=== PATIENT | male | born 1955 | race Caucasian/White ===

== ENCOUNTER 2019-04-16 07:21 | Day surgery (SDC) | payer MEDICARE, MEDICAID ==
[2019-04-16] MEDS ORDERED: Propofol 200 MG/20 ML SDV ONE (07:34)
[2019-04-16] MEDS ORDERED: fentaNYL 100 MCG/2 ML SDV ONE (07:35)
[2019-04-16] MEDS ORDERED: Midazolam 1 MG/ML 2 ML SDV ONE (07:35)
[2019-04-16] MEDS ORDERED: Dextrose 5%-Lactated Ringers 1,000 ML IV SCH (08:00)
[2019-04-16] MEDS ORDERED: Glycopyrrolate 0.2 MG/ML 2 ML SDV IVPUSH ONE (08:00)
--- NOTE | 2019-04-25 15:19 | OR ---
DATE OF PROCEDURE: 04/16/2019 SURGEON: Matt Claudio MD PREOPERATIVE DIAGNOSES: Dysphagia and epigastric discomfort. POSTOPERATIVE DIAGNOSES: 1. 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 2. Large gastric and esophageal bezoar. OPERATIVE PROCEDURES: Upper gastrointestinal endoscopy with dilation of gastrojejunostomy (38782). ANESTHESIA: IV sedation. INDICATION FOR PROCEDURE: This is a 63-year-old male who is status post Riri-en-Y gastric bypass. In the past, he has had problems with stricturing at his gastrojejunostomy. He presents now with some increasing dysphagia. The plan will be to proceed with upper GI endoscope with biopsies and/or dilation as indicated. Potential risks including bleeding and perforation were discussed, and the patient wishes to proceed. DETAILS OF PROCEDURE: The patient was taken to the operating room and placed in a left lateral decubitus position. IV sedation was administered, after which the upper GI endoscope was passed orally through the length of the esophagus and into the area of the gastric pouch, and from there through the gastrojejunostomy roughly 20 cm into the Riri limb. Findings included some retained solid food within both distal esophagus and gastric pouch, and adjacent gastrojejunostomy consistent with some degree of bezoar formation. There was a mild stricture at the gastrojejunostomy allowing the 1 cm scope to be passed through that area. Otherwise, there were no ulcerations or other specific pathology. The gastrointestinal balloon catheter was then centered across the gastrojejunostomy and inflated to 54-Burkinan size. This was held in position for 1 minute, after which the balloon catheter was deflated and withdrawn. There was some dilation evident in terms of some bleeding visible, increasing the diameter of the gastrojejunostomy. The procedure was then concluded with removal of the scope. The patient was taken to the recovery room in satisfactory condition. The patient will be instructed, along with his staff, to begin an anti-bezoar diet. At this point, follow up with Surgery will be in 1 month to ascertain how he is doing at that point. Matt Claudio MD /[id number]
== END 2019-04-16 10:45 | disposition home or self-care (01) ==
LOC: JP.SDS 07:21
PROVIDERS: ATTEND Surgery
DX: K95.89 Other complications of other bariatric procedure (principal); T18.198A Other foreign object in esophagus causing other injury, initial encounter; T18.2XXA Foreign body in stomach, initial encounter; I10 Essential (primary) hypertension; E66.9 Obesity, unspecified; K21.9 Gastro-esophageal reflux disease without esophagitis; F41.9 Anxiety disorder, unspecified; F32.9 Major depressive disorder, single episode, unspecified; F03.90 Unspecified dementia, unspecified severity, without behavioral disturbance, psychotic disturbance, mood disturbance, and anxiety; G47.33 Obstructive sleep apnea (adult) (pediatric); Z68.42 Body mass index [BMI] 45.0-49.9, adult
CPT/HCPCS: 43245; J2250; J2704; J3010; J3490; J7042; J7121

== ENCOUNTER 2019-10-25 06:02 | Day surgery (SDC) | payer MEDICARE, MEDICAID ==
[2019-10-25] MEDS ORDERED: Dextrose 5%-Lactated Ringers 1,000 ML IV SCH (07:15)
[2019-10-25] MEDS ORDERED: Propofol 200 MG/20 ML SDV ONE ×2 (07:18→08:26)
[2019-10-25] MEDS ORDERED: Midazolam 1 MG/ML 2 ML SDV ONE (07:18)
[2019-10-25] MEDS ORDERED: fentaNYL 100 MCG/2 ML SDV ONE (07:18)
--- NOTE | 2019-10-26 11:12 | OR ---
DATE OF PROCEDURE: 10/25/2019 SURGEON: Matt Claudio MD PREOPERATIVE DIAGNOSIS: History of hematemesis and bloody stools. POSTOPERATIVE DIAGNOSES: 1. Mild pouch gastritis (no likely bleeding site identified). 2. Normal colonoscopic examination (no likely bleeding site identified, although perhaps excoriated hemorrhoids). OPERATIVE PROCEDURES: 1. Upper GI endoscopy with biopsies of gastric pouch for CLOtest. 2. Colonoscopy. ANESTHESIA: IV sedation. INDICATION FOR PROCEDURE: A 64-year-old male presenting with history of some hematemesis and bloody stools, status post previous gastric bypass many years ago. The plan is to proceed with upper and lower endoscopy. Potential risks including bleeding and perforation were discussed with the patient, and he wishes to proceed. DETAILS OF PROCEDURE: The patient was taken to the operating room and placed in a left lateral decubitus position. IV sedation was administered after which the upper GI endoscope was passed orally through the length of the esophagus into the gastric pouch and through the gastrojejunostomy roughly 20 cm into the Riri limb. The esophagus and EG junction were unremarkable. The gastric pouch was quite large and had some mild diffuse redness, but no erosions, ulcers or anything that would likely result in any significant bleeding. The gastrojejunostomy and visualized portion of the Riri limb were otherwise unremarkable. At this point, biopsies were obtained from the gastric pouch and sent for CLOtest for H. pylori. Minimal bleeding from the biopsy site was seen and the procedure was then concluded. Attention was then taken to the colonoscopy. Initial digital rectal exam was performed and was unremarkable. Colonoscope was passed into the rectum with retroflexion revealing uncomplicated hemorrhoidal columns. Scope was then passed to the level of cecum. The prep was fairly poor, but roughly 90% of the surfaces were seen, assuming any large mass would be seen. No blood or bleeding was identified at any point during the exam, and the scope was withdrawn and the procedure then concluded. The patient was taken to the recovery room in satisfactory condition. At this point, we will have the patient continue on the omeprazole. Will have him follow up with Yolis Felton regarding bariatric issues in 3 months. Matt Claudio MD /[id number]
== END 2019-10-25 10:00 | disposition home or self-care (01) ==
LOC: JP.SDS 06:02
PROVIDERS: ATTEND Surgery
DX: K64.9 Unspecified hemorrhoids (principal); K29.70 Gastritis, unspecified, without bleeding; Z98.84 Bariatric surgery status; Z93.4 Other artificial openings of gastrointestinal tract status
CPT/HCPCS: 43239; 45378; 87081; J2250; J2704; J3010; J7121